=== PATIENT | female | born 1995 | race Caucasian/White ===

== ENCOUNTER 2016-08-10 13:18 | Emergency (ER) | payer BC, MEDICAID ==
--- NOTE | 2016-08-10 14:10 | EDM.PDOC ---
ED HPI - General Chief Complaint: General Stated Complaint: [id number] PASSED OUT LOW BLOOD SUGAR Time Seen by Provider: 08/10/16 14:06 Source of Information: Reports: Patient, Family ( and mom) History Limitations: Reports: No limitations - History of Present Illness INITIAL COMMENTS - FREE TEXT/NARRATIVE: 21 yo white female who is 13 weeks IUP c/o being dizzy and weak at work and nearly passed out. Pt. admits to eating 2 waffles w/ syrup and some chips. Pt. denies any previous episodes. Pt. states she felt better when given peanut butter and apple juice. Pt. admits to feeling shaky now. Symptom Onset Date: 08/10/16 Symptom Onset Time: 12:30 Timing/Duration: Reports: Hour(s):, Gradual onset Severity: moderate - Related Data Allergies/ADRs: Allergies Allergy/AdvReac Type Severity Reaction Status Date / Time No Known Allergies Allergy Verified 06/11/16 10:40 Home Meds: Home Meds . [No Known Home Meds] 06/11/16 [History] Past Medical History - Past Health History Medical/Surgical History: Denies Medical/Surgical History Social & Family History - Family History Family Medical History: Noncontributory - Tobacco Use Smoking Status *Q: Unknown Ever Smoked - Caffeine Use Caffeine Use: Reports: Coffee - Recreational Drug Use Recreational Drug Use: No ED ROS GENERAL - Review of Systems Review Of Systems: See Below Constitutional: Reports: no symptoms, weakness HEENT: Reports: No symptoms Respiratory: Reports: No Symptoms Cardiovascular: Reports: No symptoms Endocrine: Reports: no symptoms GI/Abdominal: Reports: No symptoms : Reports: no symptoms Musculoskeletal: Reports: no symptoms Skin: Reports: no symptoms Neurological: Reports: No Symptoms Psychiatric: Reports: No symptoms Hematologic/Lymphatic: Reports: no symptoms Immunologic: Reports: no symptoms ED EXAM - Physical Exam Exam: See Below Exam Limited By: No limitations General Appearance: alert, WD/WN, no apparent distress Eye Exam: bilateral eye: PERRL Ears: normal external exam Nose: normal inspection Throat/Mouth: Normal inspection, Normal lips Head: atraumatic, normocephalic Neck: normal inspection Respiratory/Chest: no respiratory distress, lungs clear Cardiovascular: normal peripheral pulses, regular rate, rhythm GI/Abdominal: normal bowel sounds, soft, non tender heart tones: present Back Exam: normal inspection Extremities: normal inspection Neurological: alert, oriented, CN II-XII intact Psychiatric: normal affect Skin Exam: Warm, Dry, Intact Lymphatic: no adenopathy Course - Orders/Labs/Meds Labs: Laboratory Tests 08/10/16 Range/Units 13:29 POC Glucose 105 (70-105) mg/dl Departure - Departure Time of Disposition: 14:52 Disposition: Home, Self-Care 01 Condition: good Clinical Impression: Hypoglycemia Qualifiers: Weeks of gestation: 11 weeks Qualified Code(s): Z3A.11 - 11 weeks gestation of Instructions: Near-Syncope, Cafw-sa-Faen Forms: ED Department Discharge Additional Instructions: Rest Continue with vitamins Improve eating program: Increase intake of Fresh Fruits and Vegetables and Whole Juices Try Nutritional Supplement Drinks ( Boost, Ensure and Ensure Plus) - Drink 2-3 daily F/U w/ PCP
[2016-08-10 15:00] VITALS: BP 132/75
== END 2016-08-10 15:15 | disposition home or self-care (01) ==
LOC: DL.ED 13:18
DX: O99.89 Other specified diseases and conditions complicating pregnancy, childbirth and the puerperium (principal); E16.2 Hypoglycemia, unspecified; Z3A.13 13 weeks gestation of pregnancy
CPT/HCPCS: 82962; 99284

== ENCOUNTER 2017-01-30 23:56 | Inpatient (IN) | payer BC, MEDICAID ==
[2017-01-31] MEDS ORDERED: Sodium Chloride 0.9% 10 ML Syringe FLUSH PRN (00:09)
[2017-01-31] MEDS ORDERED: Lactated Ringers 500 ML IV ONE (00:09)
[2017-01-31] MEDS ORDERED: Nalbuphine 10 MG/1 ML Vial IM PRN (00:09)
[2017-01-31] MEDS ORDERED: Methylergonovine 0.2 MG/1 ML Amp IM PRN ×2 (00:09→12:24)
[2017-01-31] MEDS ORDERED: Carboprost Tromethamine 250 MCG/1 ML Amp IM PRN (00:09)
[2017-01-31] MEDS ORDERED: Misoprostol 400 MCG (4 X 100 MCG TAB) RECTAL PRN (00:09)
[2017-01-31] MEDS ORDERED: Penicillin G Potassium 5 MILLUNITS in Sodium Chloride 0.9% 100 ML IV ONE (00:09)
[2017-01-31] MEDS ORDERED: Ondansetron 4 MG/2 ML SDV IV PRN ×2 (00:09→12:24)
[2017-01-31] MEDS ORDERED: Lidocaine 1% 30 ML SDV INJECT PRN (00:09)
[2017-01-31] MEDS ORDERED: Acetaminophen 325 MG Tab PO PRN ×2 (00:09→12:24)
[2017-01-31] MEDS: Lactated Ringers 1,000 ML IV SCH ×7 (01:30→16:56)
[2017-01-31] MEDS: Penicillin G Potassium 3 MILLUNITS in Sodium Chloride 0.9% 100 ML IV SCH ×5 (01:42→18:20)
[2017-01-31] MEDS: fentaNYL 100 MCG/2 ML SDV IVPUSH PRN ×2 (05:46→07:08)
--- NOTE | 2017-01-31 08:38 | PN ---
DATE: 01/31/2017 SUBJECTIVE: The patient presented just after midnight with spontaneous rupture of membranes in a high-risk complicated by polyhydramnios. Initially, she was vasu quite nicely and heart tones were reassuring. She soon developed decelerations that would go down into the 60s and last for a few minutes and then the baby would recover in between. In general, we have had a category II tracing with intermittent large decelerations, no recurrent late decelerations, and we have had some variables. Amniotic fluid has been clear. She has now received 2 doses of IV fentanyl, and I will be transferring care over to Dr. Mar, who has been verbally updated and reviewed the strips with me. OBJECTIVE: Vital Signs: Have been good. Pulse 72, most recent blood pressure 104/54, she is afebrile with a temperature of 98. heart tones have been tracing as stated category II with periods of minimal and then periods of moderate variability, very limited accelerations, random decelerations that even go down into the 60s and last several minutes. Current baseline 130 beats per minute. Cervix last examined again by the nurse at around 6:00 this morning continues to be a tight 3 cm dilated and fairly high enough to the patient's right, essentially unchanged from her previous check an hour and a half earlier. ASSESSMENT: 1. 1, para 0. 2. A 39 and 4/7 weeks' gestation. 3. Polyhydramnios. 4. Category II heart tracing. PLAN: I have already consented the patient for section and discussed with her the indications, risks, benefits, and alternatives. Also, discussed with her blood transfusion and potential to transfer to higher level of care if there are any complications for her or the baby. She is in agreement to proceed if that becomes necessary. We are still trying for vaginal delivery. Dr. Mar was informed and is planning to assess the patient, and I would be anticipating placement of IUPC and possible initiation of Pitocin to help with progression of labor as she is currently vasu, but not making adequate cervical change. [facility] /[id number] ROGELIO
--- NOTE | 2017-01-31 08:44 | PCM.PNLD ---
Labor Progress Note - VS & Meds Vital Signs: Last Vital Signs Temp 98 F 01/31/17 05:40 Pulse 72 01/31/17 06:35 Resp BP 104/54 L 01/31/17 06:35 Pulse Ox Active Medications: Current Medications Acetaminophen (Tylenol) 650 mg PO Q4H PRN PRN Reason: Pain (Mild 1-3) and fever Carboprost Tromethamine (Hemabate Ds) 250 mcg IM ASDIRECTED PRN PRN Reason: HEMORRHAGE Fentanyl (Sublimaze) 50 mcg IVPUSH Q1H PRN PRN Reason: Pain Last Admin: 01/31/17 07:08 Dose: 50 mcg Lactated Ringer's (Ringers, Lactated) 1,000 mls @ 125 mls/hr IV ASDIRECTED NINFA Last Admin: 01/31/17 05:49 Dose: 125 mls/hr Oxytocin/Sodium Chloride (Pitocin In Ns 30 Unit/500 Ml) 30 unit in 500 mls @ 2 mls/hr IV TITRATE NINFA; 2 MUNITS/MIN PRN Reason: Protocol Penicillin G Potassium 3 (millunits/ Sodium Chloride) 100 mls @ 200 mls/hr IV Q4HR NINFA Last Admin: 01/31/17 05:27 Dose: 200 mls/hr Lidocaine HCl (Xylocaine-Mpf 1%) 10 ml INJECT ASDIRECTED PRN PRN Reason: Perineal Repair Methylergonovine Maleate (Methergine) 0.2 mg IM ASDIRECTED PRN PRN Reason: Hemorrhage Misoprostol (Cytotec) 800 mcg RECTAL ASDIRECTED PRN PRN Reason: Hemorrhage Nalbuphine HCl (Nubain) 20 mg IM ONETIME PRN PRN Reason: Abdominal Pain Ondansetron HCl (Zofran) 4 mg IV Q4H PRN PRN Reason: Nausea/Vomiting Sodium Chloride (Saline Flush) 10 ml FLUSH ASDIRECTED PRN PRN Reason: Keep Vein Open Discontinued Medications Lactated Ringer's (Ringers, Lactated) 500 mls @ 999 mls/hr IV ONETIME ONE Stop: 01/31/17 00:39 Last Admin: 01/31/17 00:40 Dose: 999 mls/hr Penicillin G Potassium 5 (millunits/ Sodium Chloride) 100 mls @ 200 mls/hr IV ONETIME ONE Stop: 01/31/17 00:38 Last Admin: 01/31/17 00:55 Dose: 200 mls/hr - Uterine Contractions Uterine Monitoring Mode: External Ladora Contraction Frequency (min): 1-4 Contraction Duration (sec): 50-90 Contraction Intensity: Moderate Uterine Resting Tone: Soft - Monitoring Monitor Mode: Spiral Electrode Heart Rate (FHR) Baseline: 135 Heart Rate (FHR) Variability: Moderate (6-25 bmp) Accelerations: Present, 15x15 Decelerations: Variable, Intermittent (<50% x 20 min) - Vaginal Exam Dilation (cm): 2-3 Effacement (Percent): 80 Station: -2 Cervical Position: Posterior Sterile Vaginal Exam Performed By: Quincy Mar Vaginal Exam Comment: Intrauterine pressure catheter placed along with scalp electrode. Amnioinfusion with Normal Saline 400 mL bolus over 30 minutes then 100 mL per hour maintainence - Labor Progress (Free Text) Labor Progress: 21 y.o Para 0 female at 39 4/7 who reported to labor and delivery with spontaneous rupture of membranes.She was to be a induction today for Polyhydraminos. After arrival she was vasu and was noted to be 2 cm dilated. She had a poor contraction pattern and was having variable decelerations. + Group B strep so has received multiple doses of Penicillin G IV. No issues other thsan the Polyhydraminos in the . She is now 2-3 cm dilated/80%/-2 station. IUPC and FSE placed. FHT's 130's to 140's good acelerations category 1 strip. Some decelerations noted so will start an amnioinfusion and turn Pitocin IV on for augmentation. Discussed plan with patient and she desires this. All questions answered.
[2017-01-31] MEDS: Oxytocin/Normal Saline 30 UNIT/500 ML BAG IV SCH ×2 (08:49→14:34)
[2017-01-31] MEDS ORDERED: fentaNYL 100 MCG/2 ML SDV ONE (10:22)
--- NOTE | 2017-01-31 11:16 | PCM.PRNOTE ---
- Free Text/Narrative Note: Requested to provide analgesia to full term patient in severe pain. Upon entering the room, pt is lying left side, rigid, complaining of severe pain and discomfort. Procedure was discussed with pt including adverse outcomes and expectations. Pt consented to analgesia, SAB/IT. Pt placed into a sitting position. Landmarks for SAB/IT were identified and marked. Back was prepped with betadine x3. A sterile, transparent, fenistrated drape was applied. Excess betadine was removed. Using 1 mL of a 2% lidocaine solution, a skin wheel was placed at the L3/L4 interspace. Using a 24 ga pencan spinal needle (4 inch), needle was inserted until positive for CSF. Negative for heme or paresthesias. Injected fentanly 20 mcg, sufenta 10 mcg, and 10 mg of a 0.75% bupivicaine solution. Pt was placed left lateral position. There were zero complications or adverse outcomes. After 10 minutes, mother had zero pain. Will continue to monitor.
[2017-01-31] MEDS ORDERED: ceFAZolin 2 GM in Premix Bag 1 BAG IV ONE (12:24)
[2017-01-31] MEDS ORDERED: Citric Acid/Sodium Citrate Solution 30 ML Cup PO ONE (12:24)
[2017-01-31] MEDS ORDERED: diphenhydrAMINE 50 MG/ML SDV IVPUSH PRN (12:24)
[2017-01-31] MEDS ORDERED: Zolpidem 5 MG Tab PO PRN (12:24)
[2017-01-31] MEDS ORDERED: Naloxone 2 MG/2 ML Syringe IVPUSH PRN (12:24)
[2017-01-31] MEDS ORDERED: Acetaminophen/oxyCODONE 325-5 MG Tab PO PRN (12:24)
[2017-01-31] MEDS ORDERED: ePHEDrine 50 MG/ML SDV IVPUSH PRN (12:24)
[2017-01-31] MEDS ORDERED: Benzocaine/Menthol 20%-0.5% Spray 56 GM Canister TOP PRN (12:24)
[2017-01-31] MEDS ORDERED: Carboprost Tromethamine 250 MCG/1 ML Amp IM ONE (12:24)
[2017-01-31] MEDS ORDERED: Oxytocin/Normal Saline 60 UNIT/1,000 ML BAG ONE (12:26)
[2017-01-31] MEDS ORDERED: Lactated Ringers 1,000 ML IV SCH (12:30)
[2017-01-31 13:48] LABS: BASE EXCESS UMBILICAL VENOUS -2.7 mmol/l ((-2)-(+2)); BICARBONATE,VENOUS UMBILICAL 22.8 mmol/l (24-28); PCO2 UMBILICAL VENOUS 43.9 mmHg (31-58)
[2017-01-31 13:51] LABS: PH,UMBILICAL VENOUS 7.34 (7.23-7.40)
[2017-01-31] MEDS ORDERED: fentaNYL 100 MCG/2 ML SDV ITHECAL ONE (14:04)
--- NOTE | 2017-01-31 14:42 | PCM.PRNOTE ---
- Free Text/Narrative Note: Requested to provide analgesia to full term patient for a primary c section. Pt is having non reassuring heart tones - decels. Procedure was discussed with pt including adverse outcomes and expectations. Pt consented to analgesia, SAB/IT for emergency c section. Pt brought into the OR placed onto left side. Landmarks for SAB/IT were identified and marked. Back was prepped with betadine x3. A sterile, transparent, fenistrated drape was applied. Excess betadine was removed. Using 1 mL of a 2% lidocaine solution, a skin wheel was placed at the L3/L4 interspace. Using a 24 ga pencan spinal needle (4 inch), first attempt was unsuccessful. Immediately went down to L4/L5 interspace and still unsuccessful. Set patient into an upright, sitting position. Same back prep and local. Using a 24 ga pencan spinal needle (4 inch), at the L3/L4 interspace, positive csf when needle and introducer was dimpling the skin - positive for CSF. Negative for heme or paresthesias. Injected 200 mcg of duramorph and 12 mg of a 0.75% bupivicaine solution. Pt was placed into a supine position with left tilt. There were zero complications or adverse outcomes. Patient tolerated procedure well.
--- NOTE | 2017-01-31 16:29 | PN ---
DATE: 01/31/2017 This patient is a 21-year-old, 1, para 0, at 39 and 4/7 weeks gestation, who has been here with Pitocin augmentation, and she has been tolerating her labor quite well with Pitocin augmentation. She then had repetitive deep variable decelerations that lasted for approximately 6 minutes into the 70's. With turning the Pitocin off, we were able to have the heart tones resuscitate in the 170s to 180s. She had decelerations earlier in her labor. She was noted to be 6 cm dilated, 80% effaced, -2 station, and with her not dropping any further in the pelvis with no descent and with her having multiple decelerations throughout her labor despite an Amnioinfusion, it was decided that a section should be performed. The risks, benefits, complications, and side effects of the procedure were discussed with the patient including infection, bleeding, injury to the bowel, bladder, ureters, blood vessels, and to the fetus. Despite this they wanted to do the procedure. We could continue the labor process, but with the repetitive decelerations especially with decelerations she had earlier in the labor and not being able to turn the Pitocin on without having variable and late decelerations, a section was the best option to go with at this point. All her questions were answered. [facility] /[id number] ROGELIO
[2017-01-31] MEDS ORDERED: HYDROmorphone 1 MG/ML Syringe IVPUSH SCH (18:15)
[2017-01-31] MEDS ORDERED: HYDROmorphone 1 MG/ML Syringe IVPUSH PRN (18:33)
[2017-01-31] MEDS ORDERED: Promethazine 25 MG/ML SDV IM PRN (19:10)
[2017-01-31] MEDS: Ketorolac 30 MG/ML SDV IVPUSH SCH (19:16)
--- NOTE | 2017-01-31 21:02 | OR ---
DATE: 01/31/2017 PREOPERATIVE DIAGNOSES: 1. 39-4/7 weeks' intrauterine . 2. Polyhydramnios. 3. Spontaneous rupture of membranes. 4. Pitocin augmentation. 5. intolerance to labor. POSTOPERATIVE DIAGNOSES: 1. 39-4/7 weeks' intrauterine . 2. Polyhydramnios. 3. Spontaneous rupture of membranes. 4. Pitocin augmentation. 5. intolerance to labor. 6. Delivery of a viable female weighing 7 pounds 6 ounces, length 20- 1/2 inches long with scores of 3 at 1 minute and 9 at 5 minutes. PROCEDURE PERFORMED: Primary low transverse section via Pfannenstiel skin incision. ASSISTANTS: 1. Anabella Mendez MD. 2. Carroll Flor MS-4. ESTIMATED BLOOD LOSS: 900 mL. FLUIDS: Crystalloid/LR. DRAINS: Duke catheter. PATHOLOGY: Placenta sent, and cord gases sent. ANESTHESIA: Spinal with Duramorph. COMPLICATIONS: None. FINDINGS: Normal uterus, tubes, and ovaries. Viable female weighing 7 pounds 6 ounces, 20-1/2 inches long with scores of 3 at 1 minute and 9 at 5 minutes. INDICATIONS FOR DELIVERY: Millie is a 21-year-old 1, para 0 female at 39-4/7 weeks' gestation, who reported to labor and delivery after spontaneous rupture of membranes. The was complicated with polyhydramnios. Pitocin augmentation was started, and she was having decelerations throughout the labor process. Intrauterine pressure catheter and scalp electrode were placed. Amnioinfusion was started, and despite this, she still had prolonged decelerations, variable and late, so a section was called. PROCEDURE IN DETAIL: The patient was taken to the operating room with an IV running. She was placed supine on the operating room table. After adequate spinal anesthesia with Duramorph was obtained, she was prepped and draped in usual sterile fashion in the dorsal supine position with a leftward tilt. A Pfannenstiel skin incision was then made. This was carried down the fascia with care. The fascia was nicked in midline and extended laterally. The fascia was taken off the rectus muscles superiorly and inferiorly. The rectus muscles were in the midline. The peritoneal cavity was entered. At this point, an Og O-ring retractor was then placed. A low transverse incision in the uterus was then accomplished. The infant's head was then delivered as well as the rest of the infant. The nose and mouth were suctioned. Cord was clamped and cut. The was handed off to the waiting physician, Dr. Mendez and nurses. Cord blood gas and cord blood were obtained. The placenta was then delivered by simple expression intact. The uterus was cleared of all clots and debris. The uterus was then reapproximated with a #1 Vicryl suture in a double layer closure. Excellent hemostasis was noted. Uterus, tubes, and ovaries were all inspected and noted to be normal. With excellent hemostasis noted, the gutters were cleared of all clots and debris. The Og ring retractor was removed. The rectus muscles and peritoneum were reapproximated with 0 chromic suture in a running, nonlocked fashion. Excellent hemostasis was noted. The fascia was then reapproximated with 0 PDS suture in a running, nonlocked fashion. Excellent hemostasis was noted. Subcutaneous tissue was irrigated with warm sterile water and was dried. The skin was reapproximated with 3-0 Monocryl suture in a running, subcuticular fashion. Dermabond was placed as a dressing. There was clear yellow urine noted to emanate from the Duke catheter throughout the entire procedure. The patient tolerated the procedure quite well. All sponge, needle, and instrument counts were correct by the nurse in attendance x2. The patient was taken to the PACU in awake and stable condition. The patient received 2 g of Ancef IV before the procedure. [facility] /[id number]
[2017-02-01] MEDS: Simethicone 80 MG Tab.Chew PO PRN ×2 (01:06→21:40)
[2017-02-01] MEDS: Ketorolac 30 MG/ML SDV IVPUSH SCH ×2 (01:06→07:35)
[2017-02-01] MEDS: Docusate Sodium 100 MG Cap PO PRN ×2 (01:06→21:40)
[2017-02-01] MEDS: Prenatal Multivitamin with Calcium/Folic Acid/Iron Tab PO SCH ×2 (07:37→10:14)
[2017-02-01] MEDS ORDERED: Ferrous Sulfate 325 MG Tab PO SCH (08:00)
--- NOTE | 2017-02-01 08:46 | PCM.PNPP ---
- General Info Date of Service: 02/01/17 (PPD/POD # 1 S/P Primary section) Functional Status: Reports: Tolerating Diet - Review of Systems General: Reports: No Symptoms HEENT: Reports: No Symptoms Pulmonary: Reports: No Symptoms Cardiovascular: Reports: No Symptoms Gastrointestinal: Reports: No Symptoms Genitourinary: Reports: No Symptoms Musculoskeletal: Reports: No Symptoms Skin: Reports: No Symptoms Neurological: Reports: No Symptoms Psychiatric: Reports: No Symptoms - General Info Date of Service: 02/01/17 (PPD/POD # 1 S/P Primary Section) - Patient Data Vital Signs - Most Recent: Last Vital Signs Temp 98.2 F 02/01/17 01:35 Pulse 81 02/01/17 01:35 Resp 16 02/01/17 01:35 BP 107/51 L 02/01/17 01:35 Pulse Ox 99 02/01/17 01:35 Weight - Most Recent: 194 lb I&O - Last 24 Hours: Intake & Output 01/31/17 02/01/17 02/01/17 22:59 06:59 14:59 Intake Total 322 1500 Output Total 140 575 Balance 182 925 Lab Results - Last 24 Hours: Laboratory Results - last 24 hr 01/31/17 01/31/17 02/01/17 Range/Units 00:25 13:41 06:21 WBC 13.5 H (5.0-10.0) 10^3/uL RBC 3.63 L (4.2-5.4) 10^6/uL Hgb 10.6 L (12.0-16.0) g/dL Hct 31.4 L (37.0-47.0) % MCV 86.5 (80-100) fL MCH 29.2 (27.0-34.0) pg MCHC 33.8 (33.0-35.0) g/dL Plt Count 208 (150-450) 10^3/uL Cord VBG pH 7.34 (7.23-7.40) Cord VBG pCO2 43.9 (31-58) mmHg Cord VBG HCO3 22.8 L (24-28) mmol/l Cord VBG Base Excess -2.7 L ((-2)-(+2)) mmol/l Blood Type AB POSITIVE Gel Antibody Screen Negative Med Orders - Current: Current Medications Acetaminophen (Tylenol) 650 mg PO Q4H PRN PRN Reason: Pain (Mild 1-3) and fever Acetaminophen (Tylenol) 650 mg PO Q6H PRN PRN Reason: mild pain or fever Benzocaine/Menthol (Dermoplast Pain Relief [place]) 0 gm TOP Q4H PRN PRN Reason: Hemorrhoids Carboprost Tromethamine (Hemabate Ds) 250 mcg IM ASDIRECTED PRN PRN Reason: HEMORRHAGE Diphenhydramine HCl (Benadryl) 25 mg IVPUSH Q6H PRN PRN Reason: Itching or Nausea Docusate Sodium (Colace) 100 mg PO Q12H PRN PRN Reason: Constipation Last Admin: 02/01/17 01:06 Dose: 100 mg Ephedrine Sulfate (Ephedrine Sulfate) 5 mg IVPUSH SEECOMMENT PRN PRN Reason: Other Fentanyl (Sublimaze) 50 mcg IVPUSH Q1H PRN PRN Reason: Pain Last Admin: 01/31/17 07:08 Dose: 50 mcg Ferrous Sulfate (Ferrous Sulfate) 325 mg PO BRK NINFA Hydromorphone HCl (Dilaudid) 1 mg IVPUSH Q4H PRN PRN Reason: Pain Lactated Ringer's (Ringers, Lactated) 1,000 mls @ 125 mls/hr IV ASDIRECTED NINFA Last Infusion: 01/31/17 20:00 Dose: 50 mls/hr Oxytocin/Sodium Chloride (Pitocin In Ns 30 Unit/500 Ml) 30 unit in 500 mls @ 2 mls/hr IV TITRATE NINFA; 2 MUNITS/MIN PRN Reason: Protocol Last Titration: 01/31/17 19:27 Dose: 0 mls/hr Lactated Ringer's (Ringers, Lactated) 1,000 mls @ 125 mls/hr IV ASDIRECTED NINFA Ibuprofen (Motrin) 800 mg PO Q8H PRN PRN Reason: mild pain or fever Lidocaine HCl (Xylocaine-Mpf 1%) 10 ml INJECT ASDIRECTED PRN PRN Reason: Perineal Repair Methylergonovine Maleate (Methergine) 0.2 mg IM ASDIRECTED PRN PRN Reason: Hemorrhage Methylergonovine Maleate (Methergine) 0.2 mg IM ONETIME PRN PRN Reason: Excessive Vaginal Bleeding Misoprostol (Cytotec) 800 mcg RECTAL ASDIRECTED PRN PRN Reason: Hemorrhage Nalbuphine HCl (Nubain) 20 mg IM ONETIME PRN PRN Reason: Abdominal Pain Last Admin: 01/31/17 09:25 Dose: 20 mg Naloxone HCl (Narcan) 0.1 mg IVPUSH SEECOMMENT PRN PRN Reason: Respiratory Depression Ondansetron HCl (Zofran) 4 mg IV Q4H PRN PRN Reason: Nausea/Vomiting Last Admin: 01/31/17 10:21 Dose: 4 mg Ondansetron HCl (Zofran) 4 mg IV Q4H PRN PRN Reason: Nausea/Vomiting Last Admin: 01/31/17 19:13 Dose: 4 mg Oxycodone/Acetaminophen (Percocet 325-5 Mg) 1 tab PO Q4H PRN PRN Reason: Pain (moderate 4-6) Last Admin: 02/01/17 07:38 Dose: 1 tab Oxycodone/Acetaminophen (Percocet 325-5 Mg) 2 tab PO Q4H PRN PRN Reason: Pain (moderate 4-6) Prenat Multivit/[place]/Iron/Folic Ac ( Plus Iron) 1 each PO DAILY NINFA Last Admin: 02/01/17 07:37 Dose: 1 each Promethazine HCl (Phenergan) 25 mg IM Q4H PRN PRN Reason: Nausea/Vomiting Simethicone (Simethicone) 80 mg PO Q4H PRN PRN Reason: Gas Last Admin: 02/01/17 01:06 Dose: 80 mg Sodium Chloride (Saline Flush) 10 ml FLUSH ASDIRECTED PRN PRN Reason: Keep Vein Open Zolpidem Tartrate (Ambien) 5 mg PO BEDTIME PRN PRN Reason: Insomnia Discontinued Medications Carboprost Tromethamine (Hemabate Ds) 250 mcg IM ONETIME ONE Stop: 01/31/17 12:25 Last Admin: 01/31/17 17:49 Dose: Not Given Citric Acid/Sodium Citrate (Bicitra Solution) 30 ml PO ONETIME ONE Stop: 01/31/17 12:25 Last Admin: 01/31/17 12:44 Dose: 30 ml Fentanyl (Sublimaze) Confirm Administered Dose 100 mcg .ROUTE .STK-MED ONE Stop: 01/31/17 10:23 Last Admin: 01/31/17 17:48 Dose: Not Given Hydromorphone HCl (Dilaudid) 1 mg IVPUSH Q4H [facility] Last Admin: 01/31/17 18:30 Dose: 1 mg Lactated Ringer's (Ringers, Lactated) 500 mls @ 999 mls/hr IV ONETIME ONE Stop: 01/31/17 00:39 Last Admin: 01/31/17 00:40 Dose: 999 mls/hr Penicillin G Potassium 5 (millunits/ Sodium Chloride) 100 mls @ 200 mls/hr IV ONETIME ONE Stop: 01/31/17 00:38 Last Admin: 01/31/17 00:55 Dose: 200 mls/hr Penicillin G Potassium 3 (millunits/ Sodium Chloride) 100 mls @ 200 mls/hr IV Q4HR [facility] Last Admin: 01/31/17 18:20 Dose: Not Given Oxytocin/Sodium Chloride (Pitocin In Ns 30 Unit/500 Ml) Confirm Administered Dose 60 unit in 1,000 mls @ as directed .ROUTE .STK-MED ONE Stop: 01/31/17 12:27 Cefazolin Sodium/Dextrose 2 gm (/ Premix) 50 mls @ 100 mls/hr IV ONETIME ONE Stop: 01/31/17 12:53 Last Admin: 01/31/17 13:00 Dose: 100 mls/hr Ketorolac Tromethamine (Toradol) 15 mg IVPUSH Q6H [facility] Stop: 02/01/17 07:01 Last Admin: 02/01/17 07:35 Dose: 15 mg Sufentanil Citrate (Sufenta) Confirm Administered Dose 50 mcg .ROUTE .STK-MED ONE Stop: 01/31/17 10:23 Last Admin: 01/31/17 17:49 Dose: Not Given - Interaction Infant Disposition, : [place] in Room with Family Infant Interaction: Holding Infant Feeding: Breastfed Infant; Nursed Well Support Person: Significant Other - Recovery Exam Fundal Tone: Firm Fundal Level: At Umbilicus Fundal Placement: Midline Lochia Amount: Small Lochia Color: Rubra/Red Perineum Description: Intact, Minimal Bruising/Swelling Episiotomy/Laceration: None Bladder Status: Nonpalpable, Indwelling Catheter in Place Urinary Elimination: Indwelling Catheter - Exam General: Alert, Oriented, Cooperative, Mild Distress HEENT: Pupils Equal, Pupils Reactive, Mucous Membr. Moist/[place] Neck: Supple, Trachea Midline, No Thyromegaly Lungs: Clear to Auscultation, Normal Respiratory Effort Cardiovascular: Regular Rate, Regular Rhythm, No Murmurs GI/Abdominal Exam: Normal Bowel Sounds, Soft, No Organomegaly, No Distention, Tender Extremities: Normal Inspection, Normal Range of Motion, Non-Tender, No Pedal Edema, Normal Capillary Refill Skin: Warm, Dry, Intact Wound/Incisions: Healing Well, No Drainage Neurological: No New Focal Deficit, Normal Gait, Normal Speech, Normal Tone, Strength Equal Bilateral Psy/Mental Status: Alert, Normal Affect, Normal Mood - Problem List Review Problem List Initiated/Reviewed/Updated: Yes - My Orders Last 24 Hours: My Active Orders 01/31/17 07:58 Urinary Catheter Assessment [RC] 08,01/31/17 08:00 Insert Guzman Catheter [Insert Urinary Catheter] [OM.PC] Q24H 01/31/17 08:34 Scalp Electrode [WOMSER] Routine IUPC Insertion [Intrauterine Pressure Catheter Insertion] [WOMSER] Routine 01/31/17 12:24 Bedrest [RC] ASDIRECTED Communication Order [RC] PER UNIT ROUTINE Communication Order [RC] Per Unit Routine RT Incentive Spirometry [RC] ASDIRECTED Urinary Catheter Removal [RC] Per Unit Routine Vital Signs [RC] 08,12,16,20,00,04 Consult to Harvesting Manager [CONS] Routine Acetaminophen [Tylenol] 650 mg PO Q6H PRN Acetaminophen/oxyCODONE [Percocet 325-5 MG] 1 tab PO Q4H PRN Acetaminophen/oxyCODONE [Percocet 325-5 MG] 2 tab PO Q4H PRN Benzocaine/Menthol [Dermoplast Pain Relief [place]] See Dose Instructions TOP Q4H PRN Docusate Sodium [Colace] 100 mg PO Q12H PRN Methylergonovine [Methergine] 0.2 mg IM ONETIME PRN Naloxone [Narcan] 0.1 mg IVPUSH SEECOMMENT PRN Ondansetron [Zofran] 4 mg IV Q4H PRN Simethicone 80 mg PO Q4H PRN Zolpidem [Ambien] 5 mg PO BEDTIME PRN diphenhydrAMINE [Benadryl] 25 mg IVPUSH Q6H PRN ePHEDrine [ePHEDrine Sulfate] 5 mg IVPUSH SEECOMMENT PRN Antiembolic Hose [OM.PC] Per Unit Routine Assess Lochia [WOMSER] Per Unit Routine Assess Uterine Involution [WOMSER] Per Unit Routine Breast Pump [WOMSER] Per Unit Routine Schedule Procedure [COMM] Per Unit Routine Sequential Compression Device [OM.PC] Per Unit Routine 01/31/17 12:26 Antiembolic Devices [RC] 08,20 Intake and Output [RC] Q8H 01/31/17 12:27 Abdominal Binder [OM.PC] Per Unit Routine Heat Therapy [OM.PC] Per Unit Routine Ice Therapy [OM.PC] Per Unit Routine 01/31/17 12:30 Lactated Ringers [Ringers, Lactated] 1,000 ml IV ASDIRECTED 01/31/17 12:33 Notify Provider Intake and Out [RC] ASDIRECTED 01/31/17 19:10 Promethazine [Phenergan] 25 mg IM Q4H PRN 01/31/17 Dinner Nothing Per Oral Diet [DIET] Regular Diet [DIET] 02/01/17 08:00 Ferrous Sulfate 325 mg PO BRK 02/01/17 09:00 Vit with Ca/FA/Iron [ Plus Iron] 1 each PO DAILY 02/01/17 12:00 Ibuprofen [Motrin] 800 mg PO Q8H PRN 02/02/17 05:11 CBC W/O DIFF,HEMOGRAM [HEME] AM - Assessment Assessment:: PPD/POD # 1 S/P Primary low transverse section Doing well Incisional discomfort. Acute anemia secondary to blood loss. - Plan Plan:: Increase diet. Will remove guzman catheter today and start ambulating more. Percocet/Ibuprofen for pain control. All questions answered. Ferrous sulfate 325 mg BID po along with PNV.
[2017-02-01] MEDS: Acetaminophen/oxyCODONE 325-5 MG Tab PO PRN ×3 (12:19→21:40)
[2017-02-01] MEDS: Ibuprofen 800 MG Tab PO PRN (16:12)
[2017-02-01] MEDS: Ferrous Sulfate 325 MG Tab PO SCH (18:35)
[2017-02-02] MEDS: Ibuprofen 800 MG Tab PO PRN ×3 (01:07→20:12)
[2017-02-02] MEDS: Acetaminophen/oxyCODONE 325-5 MG Tab PO PRN ×4 (02:39→20:12)
[2017-02-02] MEDS: Ferrous Sulfate 325 MG Tab PO SCH ×2 (09:07→18:08)
[2017-02-02] MEDS: Prenatal Multivitamin with Calcium/Folic Acid/Iron Tab PO SCH (09:07)
[2017-02-02] MEDS: Docusate Sodium 100 MG Cap PO PRN ×2 (09:13→20:12)
--- NOTE | 2017-02-02 11:26 | PCM.PNPP ---
- General Info Date of Service: 02/02/17 (PPD/POD # 2 S/P Primary section) Functional Status: Reports: Pain Controlled, Tolerating Diet, Ambulating, Urinating - Review of Systems General: Reports: No Symptoms HEENT: Reports: No Symptoms Pulmonary: Reports: No Symptoms Cardiovascular: Reports: No Symptoms Gastrointestinal: Reports: No Symptoms Genitourinary: Reports: No Symptoms Musculoskeletal: Reports: No Symptoms Skin: Reports: No Symptoms Neurological: Reports: No Symptoms Psychiatric: Reports: No Symptoms - General Info Date of Service: 02/02/17 (PPD/POD # 2 S/P Primary section) - Patient Data Vital Signs - Most Recent: Last Vital Signs Temp 98.3 F 02/02/17 05:30 Pulse 79 02/02/17 05:30 Resp 16 02/02/17 05:30 BP 130/66 02/02/17 05:30 Pulse Ox 99 02/01/17 20:00 Weight - Most Recent: 194 lb I&O - Last 24 Hours: Intake & Output 02/01/17 02/02/17 02/02/17 22:59 06:59 14:59 Output Total 600 Balance -600 Lab Results - Last 24 Hours: Laboratory Results - last 24 hr 02/02/17 Range/Units 06:15 WBC 10.5 H (5.0-10.0) 10^3/uL RBC 3.51 L (4.2-5.4) 10^6/uL Hgb 10.3 L (12.0-16.0) g/dL Hct 30.3 L (37.0-47.0) % MCV 86.3 (80-100) fL MCH 29.3 (27.0-34.0) pg MCHC 34.0 (33.0-35.0) g/dL Plt Count 238 (150-450) 10^3/uL Med Orders - Current: Current Medications Acetaminophen (Tylenol) 650 mg PO Q4H PRN PRN Reason: Pain (Mild 1-3) and fever Acetaminophen (Tylenol) 650 mg PO Q6H PRN PRN Reason: mild pain or fever Benzocaine/Menthol (Dermoplast Pain Relief [place]) 0 gm TOP Q4H PRN PRN Reason: Hemorrhoids Carboprost Tromethamine (Hemabate Ds) 250 mcg IM ASDIRECTED PRN PRN Reason: HEMORRHAGE Diphenhydramine HCl (Benadryl) 25 mg IVPUSH Q6H PRN PRN Reason: Itching or Nausea Docusate Sodium (Colace) 100 mg PO Q12H PRN PRN Reason: Constipation Last Admin: 02/02/17 09:13 Dose: 100 mg Ephedrine Sulfate (Ephedrine Sulfate) 5 mg IVPUSH SEECOMMENT PRN PRN Reason: Other Fentanyl (Sublimaze) 50 mcg IVPUSH Q1H PRN PRN Reason: Pain Last Admin: 01/31/17 07:08 Dose: 50 mcg Ferrous Sulfate (Ferrous Sulfate) 325 mg PO BIDMEALS NINFA Last Admin: 02/02/17 09:07 Dose: 325 mg Hydromorphone HCl (Dilaudid) 1 mg IVPUSH Q4H PRN PRN Reason: Pain Lactated Ringer's (Ringers, Lactated) 1,000 mls @ 125 mls/hr IV ASDIRECTED NINFA Last Infusion: 01/31/17 20:00 Dose: 50 mls/hr Oxytocin/Sodium Chloride (Pitocin In Ns 30 Unit/500 Ml) 30 unit in 500 mls @ 2 mls/hr IV TITRATE NINFA; 2 MUNITS/MIN PRN Reason: Protocol Last Titration: 01/31/17 19:27 Dose: 0 mls/hr Lactated Ringer's (Ringers, Lactated) 1,000 mls @ 125 mls/hr IV ASDIRECTED NINFA Ibuprofen (Motrin) 800 mg PO Q8H PRN PRN Reason: mild pain or fever Last Admin: 02/02/17 09:09 Dose: 800 mg Lidocaine HCl (Xylocaine-Mpf 1%) 10 ml INJECT ASDIRECTED PRN PRN Reason: Perineal Repair Methylergonovine Maleate (Methergine) 0.2 mg IM ASDIRECTED PRN PRN Reason: Hemorrhage Methylergonovine Maleate (Methergine) 0.2 mg IM ONETIME PRN PRN Reason: Excessive Vaginal Bleeding Misoprostol (Cytotec) 800 mcg RECTAL ASDIRECTED PRN PRN Reason: Hemorrhage Nalbuphine HCl (Nubain) 20 mg IM ONETIME PRN PRN Reason: Abdominal Pain Last Admin: 01/31/17 09:25 Dose: 20 mg Naloxone HCl (Narcan) 0.1 mg IVPUSH SEECOMMENT PRN PRN Reason: Respiratory Depression Ondansetron HCl (Zofran) 4 mg IV Q4H PRN PRN Reason: Nausea/Vomiting Last Admin: 01/31/17 10:21 Dose: 4 mg Ondansetron HCl (Zofran) 4 mg IV Q4H PRN PRN Reason: Nausea/Vomiting Last Admin: 01/31/17 19:13 Dose: 4 mg Oxycodone/Acetaminophen (Percocet 325-5 Mg) 1 tab PO Q4H PRN PRN Reason: Pain (moderate 4-6) Last Admin: 02/01/17 07:38 Dose: 1 tab Oxycodone/Acetaminophen (Percocet 325-5 Mg) 2 tab PO Q4H PRN PRN Reason: Pain (moderate 4-6) Last Admin: 02/02/17 09:10 Dose: 2 tab Prenat Multivit/[place]/Iron/Folic Ac ( Plus Iron) 1 each PO DAILY NINFA Last Admin: 02/02/17 09:07 Dose: 1 each Promethazine HCl (Phenergan) 25 mg IM Q4H PRN PRN Reason: Nausea/Vomiting Simethicone (Simethicone) 80 mg PO Q4H PRN PRN Reason: Gas Last Admin: 02/01/17 21:40 Dose: 80 mg Sodium Chloride (Saline Flush) 10 ml FLUSH ASDIRECTED PRN PRN Reason: Keep Vein Open Zolpidem Tartrate (Ambien) 5 mg PO BEDTIME PRN PRN Reason: Insomnia Discontinued Medications Carboprost Tromethamine (Hemabate Ds) 250 mcg IM ONETIME ONE Stop: 01/31/17 12:25 Last Admin: 01/31/17 17:49 Dose: Not Given Citric Acid/Sodium Citrate (Bicitra Solution) 30 ml PO ONETIME ONE Stop: 01/31/17 12:25 Last Admin: 01/31/17 12:44 Dose: 30 ml Fentanyl (Sublimaze) Confirm Administered Dose 100 mcg .ROUTE .STK-MED ONE Stop: 01/31/17 10:23 Last Admin: 01/31/17 17:48 Dose: Not Given Ferrous Sulfate (Ferrous Sulfate) 325 mg PO BRK NINFA Hydromorphone HCl (Dilaudid) 1 mg IVPUSH Q4H NINFA Last Admin: 01/31/17 18:30 Dose: 1 mg Lactated Ringer's (Ringers, Lactated) 500 mls @ 999 mls/hr IV ONETIME ONE Stop: 01/31/17 00:39 Last Admin: 01/31/17 00:40 Dose: 999 mls/hr Penicillin G Potassium 5 (millunits/ Sodium Chloride) 100 mls @ 200 mls/hr IV ONETIME ONE Stop: 01/31/17 00:38 Last Admin: 01/31/17 00:55 Dose: 200 mls/hr Penicillin G Potassium 3 (millunits/ Sodium Chloride) 100 mls @ 200 mls/hr IV Q4HR [facility] [place] Last Admin: 01/31/17 18:20 Dose: Not Given Oxytocin/Sodium Chloride (Pitocin In Ns 30 Unit/500 Ml) Confirm Administered Dose 60 unit in 1,000 mls @ as directed .ROUTE .STK-MED ONE Stop: 01/31/17 12:27 Cefazolin Sodium/Dextrose 2 gm (/ Premix) 50 mls @ 100 mls/hr IV ONETIME ONE Stop: 01/31/17 12:53 Last Admin: 01/31/17 13:00 Dose: 100 mls/hr Ketorolac Tromethamine (Toradol) 15 mg IVPUSH Q6H [facility] [place] Stop: 02/01/17 07:01 Last Admin: 02/01/17 07:35 Dose: 15 mg Sufentanil Citrate (Sufenta) Confirm Administered Dose 50 mcg .ROUTE .STK-MED ONE Stop: 01/31/17 10:23 Last Admin: 01/31/17 17:49 Dose: Not Given - Infant Interaction Disposition, : [place] in Room with Family Infant Interaction: Holding Infant Feeding: Breastfed Infant; Nursed Well Support Person: Significant Other - Recovery Exam Fundal Tone: Firm Fundal Level: 1 Fingerbreadths Below Umbilicus Fundal Placement: Midline Lochia Amount: Moderate Lochia Color: Rubra/Red Perineum Description: Intact, Minimal Bruising/Swelling Episiotomy/Laceration: None Bladder Status: Voiding Urinary Elimination: Voided - Exam General: Alert, Oriented, Cooperative, No Acute Distress HEENT: Pupils Equal, Pupils Reactive, EOMI, Mucous Membr. Moist/[place] Neck: Supple Lungs: Clear to Auscultation, Normal Respiratory Effort Cardiovascular: Regular Rate, Regular Rhythm GI/Abdominal Exam: Normal Bowel Sounds, Soft, No Distention, Tender Extremities: Normal Inspection, Normal Range of Motion, Non-Tender, No Pedal Edema, Normal Capillary Refill Skin: Warm, Dry, Intact Wound/Incisions: Healing Well, No Drainage Neurological: No New Focal Deficit, Normal Gait, Normal Speech, Normal Tone Psy/Mental Status: Alert, Normal Affect, Normal Mood - Problem List Review Problem List Initiated/Reviewed/Updated: Yes - My Orders Last 24 Hours: My Active Orders 02/01/17 12:00 Ibuprofen [Motrin] 800 mg PO Q8H PRN 02/01/17 18:00 Ferrous Sulfate 325 mg PO BIDMEALS - Assessment Assessment:: PPD/POD # 2 S/P Primary low transverse section Doing well Incisional discomfort improving. - Plan Plan:: Continue present care Increase ambulation All questions answered Will discharge home tomorrow
[2017-02-02] MEDS: Simethicone 80 MG Tab.Chew PO PRN (20:13)
[2017-02-03] MEDS: Acetaminophen/oxyCODONE 325-5 MG Tab PO PRN ×3 (00:17→10:21)
--- NOTE | 2017-02-03 03:36 | PCM.PNPP ---
- General Info Date of Service: 02/03/17 (PPD/POD # 3 S/P Primary LTC/S) Functional Status: Reports: Pain Controlled, Tolerating Diet, Ambulating - Review of Systems General: Reports: No Symptoms HEENT: Reports: No Symptoms Pulmonary: Reports: No Symptoms Cardiovascular: Reports: No Symptoms Gastrointestinal: Reports: No Symptoms Genitourinary: Reports: No Symptoms Musculoskeletal: Reports: No Symptoms Skin: Reports: No Symptoms Neurological: Reports: No Symptoms Psychiatric: Reports: No Symptoms - General Info Date of Service: 02/03/17 (PPPD/POD # 3 S/P Primary LTC/S) - Patient Data Vital Signs - Most Recent: Last Vital Signs Temp 97.9 F 02/02/17 20:00 Pulse 89 02/02/17 20:00 Resp 16 02/02/17 20:00 BP 125/76 02/02/17 20:00 Pulse Ox 100 02/02/17 20:00 Weight - Most Recent: 194 lb Lab Results - Last 24 Hours: Laboratory Results - last 24 hr 02/02/17 Range/Units 06:15 WBC 10.5 H (5.0-10.0) 10^3/uL RBC 3.51 L (4.2-5.4) 10^6/uL Hgb 10.3 L (12.0-16.0) g/dL Hct 30.3 L (37.0-47.0) % MCV 86.3 (80-100) fL MCH 29.3 (27.0-34.0) pg MCHC 34.0 (33.0-35.0) g/dL Plt Count 238 (150-450) 10^3/uL Med Orders - Current: Current Medications Acetaminophen (Tylenol) 650 mg PO Q4H PRN PRN Reason: Pain (Mild 1-3) and fever Acetaminophen (Tylenol) 650 mg PO Q6H PRN PRN Reason: mild pain or fever Benzocaine/Menthol (Dermoplast Pain Relief [place]) 0 gm TOP Q4H PRN PRN Reason: Hemorrhoids Carboprost Tromethamine (Hemabate Ds) 250 mcg IM ASDIRECTED PRN PRN Reason: HEMORRHAGE Diphenhydramine HCl (Benadryl) 25 mg IVPUSH Q6H PRN PRN Reason: Itching or Nausea Docusate Sodium (Colace) 100 mg PO Q12H PRN PRN Reason: Constipation Last Admin: 02/02/17 20:12 Dose: 100 mg Ephedrine Sulfate (Ephedrine Sulfate) 5 mg IVPUSH SEECOMMENT PRN PRN Reason: Other Fentanyl (Sublimaze) 50 mcg IVPUSH Q1H PRN PRN Reason: Pain Last Admin: 01/31/17 07:08 Dose: 50 mcg Ferrous Sulfate (Ferrous Sulfate) 325 mg PO BIDMEALS NINFA Last Admin: 02/02/17 18:08 Dose: Not Given Hydromorphone HCl (Dilaudid) 1 mg IVPUSH Q4H PRN PRN Reason: Pain Lactated Ringer's (Ringers, Lactated) 1,000 mls @ 125 mls/hr IV ASDIRECTED NINFA Last Infusion: 01/31/17 20:00 Dose: 50 mls/hr Oxytocin/Sodium Chloride (Pitocin In Ns 30 Unit/500 Ml) 30 unit in 500 mls @ 2 mls/hr IV TITRATE NINFA; 2 MUNITS/MIN PRN Reason: Protocol Last Titration: 01/31/17 19:27 Dose: 0 mls/hr Lactated Ringer's (Ringers, Lactated) 1,000 mls @ 125 mls/hr IV ASDIRECTED NINFA Ibuprofen (Motrin) 800 mg PO Q8H PRN PRN Reason: mild pain or fever Last Admin: 02/02/17 20:12 Dose: 800 mg Lidocaine HCl (Xylocaine-Mpf 1%) 10 ml INJECT ASDIRECTED PRN PRN Reason: Perineal Repair Methylergonovine Maleate (Methergine) 0.2 mg IM ASDIRECTED PRN PRN Reason: Hemorrhage Methylergonovine Maleate (Methergine) 0.2 mg IM ONETIME PRN PRN Reason: Excessive Vaginal Bleeding Misoprostol (Cytotec) 800 mcg RECTAL ASDIRECTED PRN PRN Reason: Hemorrhage Nalbuphine HCl (Nubain) 20 mg IM ONETIME PRN PRN Reason: Abdominal Pain Last Admin: 01/31/17 09:25 Dose: 20 mg Naloxone HCl (Narcan) 0.1 mg IVPUSH SEECOMMENT PRN PRN Reason: Respiratory Depression Ondansetron HCl (Zofran) 4 mg IV Q4H PRN PRN Reason: Nausea/Vomiting Last Admin: 01/31/17 10:21 Dose: 4 mg Ondansetron HCl (Zofran) 4 mg IV Q4H PRN PRN Reason: Nausea/Vomiting Last Admin: 01/31/17 19:13 Dose: 4 mg Oxycodone/Acetaminophen (Percocet 325-5 Mg) 1 tab PO Q4H PRN PRN Reason: Pain (moderate 4-6) Last Admin: 02/01/17 07:38 Dose: 1 tab Oxycodone/Acetaminophen (Percocet 325-5 Mg) 2 tab PO Q4H PRN PRN Reason: Pain (moderate 4-6) Last Admin: 02/03/17 00:17 Dose: 2 tab Prenat Multivit/Manager Cardiac/Iron/Folic Ac ( Plus Iron) 1 each PO DAILY [facility] Last Admin: 02/02/17 09:07 Dose: 1 each Promethazine HCl (Phenergan) 25 mg IM Q4H PRN PRN Reason: Nausea/Vomiting Simethicone (Simethicone) 80 mg PO Q4H PRN PRN Reason: Gas Last Admin: 02/02/17 20:13 Dose: 80 mg Sodium Chloride (Saline Flush) 10 ml FLUSH ASDIRECTED PRN PRN Reason: Keep Vein Open Zolpidem Tartrate (Ambien) 5 mg PO BEDTIME PRN PRN Reason: Insomnia Discontinued Medications Carboprost Tromethamine (Hemabate Ds) 250 mcg IM ONETIME ONE Stop: 01/31/17 12:25 Last Admin: 01/31/17 17:49 Dose: Not Given Citric Acid/Sodium Citrate (Bicitra Solution) 30 ml PO ONETIME ONE Stop: 01/31/17 12:25 Last Admin: 01/31/17 12:44 Dose: 30 ml Fentanyl (Sublimaze) Confirm Administered Dose 100 mcg .ROUTE .STK-MED ONE Stop: 01/31/17 10:23 Last Admin: 01/31/17 17:48 Dose: Not Given Ferrous Sulfate (Ferrous Sulfate) 325 mg PO BRK [facility] Last Admin: 02/02/17 18:13 Dose: Not Given Hydromorphone HCl (Dilaudid) 1 mg IVPUSH Q4H [facility] Last Admin: 01/31/17 18:30 Dose: 1 mg Lactated Ringer's (Ringers, Lactated) 500 mls @ 999 mls/hr IV ONETIME ONE Stop: 01/31/17 00:39 Last Admin: 01/31/17 00:40 Dose: 999 mls/hr Penicillin G Potassium 5 (millunits/ Sodium Chloride) 100 mls @ 200 mls/hr IV ONETIME ONE Stop: 01/31/17 00:38 Last Admin: 01/31/17 00:55 Dose: 200 mls/hr Penicillin G Potassium 3 (millunits/ Sodium Chloride) 100 mls @ 200 mls/hr IV Q4HR [facility] Last Admin: 01/31/17 18:20 Dose: Not Given Oxytocin/Sodium Chloride (Pitocin In Ns 30 Unit/500 Ml) Confirm Administered Dose 60 unit in 1,000 mls @ as directed .ROUTE .STK-MED ONE Stop: 01/31/17 12:27 Cefazolin Sodium/Dextrose 2 gm (/ Premix) 50 mls @ 100 mls/hr IV ONETIME ONE Stop: 01/31/17 12:53 Last Admin: 01/31/17 13:00 Dose: 100 mls/hr Ketorolac Tromethamine (Toradol) 15 mg IVPUSH Q6H [facility] Stop: 02/01/17 07:01 Last Admin: 02/01/17 07:35 Dose: 15 mg Sufentanil Citrate (Sufenta) Confirm Administered Dose 50 mcg .ROUTE .STK-MED ONE Stop: 01/31/17 10:23 Last Admin: 01/31/17 17:49 Dose: Not Given - Infant Interaction Disposition, : in Room with Family Infant Interaction: Holding Infant Feeding: Breastfed Infant; Nursed Well Support Person: Significant Other - Recovery Exam Fundal Tone: Firm Fundal Level: 2 Fingerbreadths Below Umbilicus Fundal Placement: Midline Lochia Amount: Small Lochia Color: Rubra/Red Perineum Description: Intact, Minimal Bruising/Swelling Episiotomy/Laceration: None Bladder Status: Voiding Urinary Elimination: Voided - Exam General: Alert, Oriented, Cooperative, No Acute Distress HEENT: Pupils Equal, Pupils Reactive, EOMI, Mucous Membr. Moist/[place] Neck: Supple Lungs: Clear to Auscultation, Normal Respiratory Effort Cardiovascular: Regular Rate, Regular Rhythm, No Murmurs GI/Abdominal Exam: Normal Bowel Sounds, Soft, Non-Tender, No Distention Extremities: Normal Inspection, Normal Range of Motion, Non-Tender Skin: Warm, Dry, Intact Wound/Incisions: Healing Well, No Drainage Neurological: No New Focal Deficit, Normal Gait, Normal Speech, Normal Tone Psy/Mental Status: Alert, Normal Affect, Normal Mood - Problem List & Annotations (1) delivery delivered SNOMED Code(s): 857453287 Code(s): O82 - ENCOUNTER FOR DELIVERY WITHOUT INDICATION Status: Acute Current Visit: Yes - Problem List Review Problem List Initiated/Reviewed/Updated: Yes - My Orders Last 24 Hours: My Active Orders 02/03/17 03:27 Ready for Discharge [RC] PER UNIT ROUTINE - Assessment Assessment:: PPD/POD # 3 S/P Primary low transverse section Doing well Ready to go home today. - Plan Plan:: Dicharge to home. All questions answered. Percocet/Motrin for pain. Follow-up with Dr. Lindo next week and at 6 week check up.
[2017-02-03] MEDS: Ibuprofen 800 MG Tab PO PRN (04:48)
--- NOTE | 2017-02-03 07:22 | DISCH ---
INDICATION FOR ADMISSION: This patient is a 21-year-old, 1, para 0 female who reported to Labor and Delivery at 39 and 4/7 weeks' gestation after spontaneous rupture of membranes. Her was complicated with polyhydramnios. After admission, Pitocin augmentation was started. Then, she was having decelerations throughout the labor process. An intrauterine pressure catheter and scalp electrode placed along with an amnio infusion of normal saline started. Despite this, she still had prolonged decelerations, variable and late decelerations, so section was called. She tolerated her procedure quite well with delivery of a 7 pounds 6 ounce female infant, 29 inches long with Apgars of 3 at 1 minute, 9 at 5 minutes. She underwent a primary low transverse section via Pfannenstiel skin incision. She went from the operating room to recovery and then to the OB floor. She tolerated the rest of her hospital stay quite well. She was afebrile. Vital signs were stable. She tolerated her diet well and ambulated quite well. No complications occurred throughout her hospital stay. Her incision did well with no erythema or drainage. She had minimal lochia. She was discharged to home on /postoperative day #3. LABORATORY AND DIAGNOSTIC STUDIES: On 01/31/2017, WBC 10.3, hemoglobin 13.1, hematocrit 38.2, and platelet count 320,000. On 02/01/2017, WBC 13.5, hemoglobin 10.6, hematocrit 31.4, and platelet count 208,000. On 02/02/2017, WBC 10.5, hemoglobin 10.3, hematocrit 30.3, and platelet count 213,000. cord blood gas on 01/29/2017, pH 7.34, pCO2 of 43.9, and base excess -2.7. DISCHARGE INSTRUCTIONS: 1. Discharge to home. 2. Follow up next week with Dr. Lindo. 3. Follow up with Dr. Lindo at 6-week checkup or sooner if problems develop. 4. No douching, tampons, or intercourse for 6 weeks. 5. Discharge instructions including activity, followup, medications, diet, and wound care were discussed with the patient. She understood these and is willing to comply with these. 6. Ibuprofen 800 mg, 1 tablet every 6 to 8 hours p.r.n. for pain. 7. Percocet 5 mg/325 mg 1 tablet every 6 to 8 hours p.r.n. for pain. DISCHARGE DIAGNOSES: 1. A 39 and 4/7-week intrauterine . 2. Polyhydramnios. 3. Spontaneous rupture of membranes. 4. Pitocin augmentation. 5. intolerance to labor. 6. Primary low transverse section via Pfannenstiel skin incision with delivery of a viable female infant, weighing 7 pounds 6 ounces, 29 inches long with Apgars of 3 at 1 minute, 9 at 5 minutes. 7. Spinal anesthesia with Duramorph. 8. Acute anemia secondary to blood loss. [facility] /[id number]
[2017-02-03] MEDS: Ferrous Sulfate 325 MG Tab PO SCH (10:21)
[2017-02-03] MEDS: Docusate Sodium 100 MG Cap PO PRN (10:21)
[2017-02-03] MEDS: Prenatal Multivitamin with Calcium/Folic Acid/Iron Tab PO SCH (10:21)
[2017-02-03 13:15] VITALS: BP 128/73
[2017-02-03] MEDS ORDERED: Morphine PF 1 MG/ML Amp ONE (15:29)
[2017-02-03] MEDS ORDERED: Oxytocin/Normal Saline 30 UNIT/500 ML BAG IV ONE (15:29)
[2017-02-03] MEDS ORDERED: Ketorolac 30 MG/ML SDV IVPUSH ONE (15:29)
== END 2017-02-03 15:30 | disposition home or self-care (01) | DRG 540 ==
LOC: DL.OBCHECK 23:56 → DL.OB 01-31 00:01 → OBSVTOIN 01-31 13:34
PROVIDERS: ADMIT Family Medicine; ATTEND Family Medicine
PROC: 10D00Z1 Extraction of Products of Conception, Low, Open Approach (ICD-10-PCS; principal; 2017-01-31)
PROC: 3E0E7GC Introduction of Other Therapeutic Substance into Products of Conception, Via Natural or Artificial Opening (ICD-10-PCS; 2017-01-31)
DX: O42.02 Full-term premature rupture of membranes, onset of labor within 24 hours of rupture (principal); Z3A.40 40 weeks gestation of pregnancy; Z37.0 Single live birth; O40.3XX0 Polyhydramnios, third trimester, not applicable or unspecified; O76 Abnormality in fetal heart rate and rhythm complicating labor and delivery; O99.824 Streptococcus B carrier state complicating childbirth
CPT/HCPCS: 36415; 82803; 83986; 85027; 86850; 86900; 86901; 94010; A9270-GY; J0690; J1170; J1885; J2274; J2300; J2405; J2540; J2590; J3010; J7050; J7120

== ENCOUNTER 2021-05-20 10:16 | Emergency (ER) | payer SELFPAY ==
[2021-05-20 10:31] VITALS: BP 135/91; PULSE 98
[2021-05-20 11:23] LABS: CORONAVIRUS COVID-19 NAA NEGATIVE (NEGATIVE); RESPIRATORY SYNCYTIAL VIR NAA NEGATIVE (NEGATIVE)
--- NOTE | 2021-05-20 11:37 | EDM.PDOC ---
Scribed by Zee Francis 05/20/21 1039 for Louie Dumont MD ED HPI GENERAL MEDICAL PROBLEM - General Chief Complaint: ENT Problem Stated Complaint: SINUS INFECTION ? Time Seen by Provider: 05/20/21 10:27 Source of Information: Reports: Patient, RN, RN Notes Reviewed History Limitations: Reports: No Limitations - History of Present Illness INITIAL COMMENTS - FREE TEXT/NARRATIVE: Patient presents to ED by POV with complaint of nasal pressure. Pt thinks she has a sinus infection that started one and half weeks ago. She also reports that a few days ago she began having a cough, with increased congestion and chills. Pt has been exposed to several sick people at her work, but she isn't sure what illness they had. Onset: Gradual Duration: Constant Location: Reports: Other (nose) Severity: Severe Improves with: Reports: None Worsens with: Reports: None Associated Symptoms: Reports: No Other Symptoms Face/Facial Pain Score (Numeric/FACES): 6 - Related Data Allergies Allergy/AdvReac Type Severity Reaction Status Date / Time No Known Allergies Allergy Verified 05/20/21 10:31 Home Meds: Home Meds Ibuprofen 800 mg PO Q6H #30 tablet 02/03/17 [Rx] Past Medical History - Past Health History Medical/Surgical History: Denies Medical/Surgical History [employer] History: Reports: Social & Family History - Family History Family Medical History: No Pertinent Family History - Tobacco Use Tobacco Use Status *Q: Current Some Day Tobacco User - Caffeine Use Caffeine Use: Reports: Soda - Living Situation & Occupation Occupation: Employed ED ROS ENT - Review of Systems Review Of Systems: Comprehensive ROS is negative, except as noted in HPI. ED EXAM, ENT - Physical Exam Exam: See Below Exam Limited By: No Limitations General Appearance: Alert, WD/WN, No Apparent Distress, Obese Eye Exam: Bilateral Eye: EOMI, Normal Inspection Ears: Normal External Exam, Normal Canal, Hearing Grossly Normal, Normal TMs Nose: No Blood, Nasal Discharge (clear-yellowish), Injected Turbinates Mouth/Throat: Normal Inspection, Normal Lips, Normal Oropharynx Head: Atraumatic, Normocephalic, Sinus Tenderness (Rt maxillary). No: Facial Swelling Neck: Normal Inspection, Supple, Non-Tender, Full Range of Motion Respiratory/Chest: No Respiratory Distress, Lungs Clear, Normal Breath Sounds, No Accessory Muscle Use, Chest Non-Tender Cardiovascular: Normal Peripheral Pulses, Regular Rate, Rhythm, No Edema, No Murmur Neurological: Alert, Oriented, No Motor/Sensory Deficits Psychiatric: Normal Mood Skin: Warm, Dry, Normal Color Course - Vital Signs Last Recorded V/S: Last Vital Signs Temp 97.4 F 05/20/21 10:29 Pulse 98 05/20/21 10:29 Resp 18 05/20/21 10:29 BP 135/91 H 05/20/21 10:29 Pulse Ox 96 05/20/21 10:29 - Orders/Labs/Meds Labs: Laboratory Tests 05/20/21 Range/Units 10:34 Influenza Type A RNA Negative (NEGATIVE) RSV RNA (INAAT) Negative (NEGATIVE) Influenza Type B RNA Negative (NEGATIVE) SARS-CoV-2 RNA (QUINN) Negative (NEGATIVE) Departure - Departure Time of Disposition: 11:35 Disposition: Home, Self-Care 01 Condition: Good Clinical Impression: Sinusitis Qualifiers: Sinusitis location: maxillary Chronicity: acute Recurrence: non-recurrent Qualified Code(s): J01.00 - Acute maxillary sinusitis, unspecified - Discharge Information *PRESCRIPTION DRUG MONITORING PROGRAM REVIEWED*: Not Applicable *COPY OF PRESCRIPTION DRUG MONITORING REPORT IN PATIENT VIANCA: Not Applicable Instructions: Sinusitis, Adult, [id number] Forms: ED Department Discharge Additional Instructions: Rx: Augmentin 875mg Use an over the counter decongestant as needed. Drink plenty of water. Moist hot pack to face/area of sinus pain. Follow up in clinic next week if not improving as expected. Sepsis Event Note (ED) - Focused Exam Vital Signs: Vital Signs Temp Pulse Resp BP Pulse Ox 05/20/21 10:29 97.4 F 98 18 135/91 H 96 I have read and agree with the documentation that has been completed regarding this visit. By signing this record, I attest that the documentation was completed in my physical presence and is an accurate record of the encounter.
== END 2021-05-20 11:48 | disposition home or self-care (01) ==
LOC: DL.ED 10:16
DX: J01.00 Acute maxillary sinusitis, unspecified (principal); Z20.822 Contact with and (suspected) exposure to COVID-19; Z72.0 Tobacco use
CPT/HCPCS: 0241U; 99283